=== PATIENT | male | born 1975 | race Two or more races ===

== ENCOUNTER 2022-03-21 07:24 | Outpatient (CLI) | payer OTHER ==
[~2022-03-21 07:24] MED LIST: AMARIL PO; ASA81 MG; COZAAR50 MG; GILTUSS TR TAB1 EACH PO; JANUMET 50-1,1 UDTAB; SIMBASTATIN PO; TESSALON PERLE100 M1 PO
== END 2022-03-21 07:27 | disposition home or self-care (01) ==
LOC: LAB 07:24
PROVIDERS: ATTEND General Practice
DX: Z20.822 Contact with and (suspected) exposure to COVID-19 (principal)

== ENCOUNTER 2023-03-02 07:42 | Outpatient (CLI) | payer OTHER | END 2023-03-02 07:44 | disposition home or self-care (01) | LOC: NUCLEAR 07:42 | PROVIDERS: ATTEND Internal Medicine | DX: I25.118 Atherosclerotic heart disease of native coronary artery with other forms of angina pectoris (principal); R06.9 Unspecified abnormalities of breathing ==